=== PATIENT | male | born 1985 | race African-American/Black ===

== ENCOUNTER 2016-11-17 12:58 | Emergency (ER) | payer BC, SELFPAY ==
[2016-11-17] MEDS ORDERED: Lidocaine 1% (PF) 30 ML VIAL ONE (15:09)
== END 2016-11-17 15:43 | disposition home or self-care (01) ==
LOC: ERS 12:58
DX: L72.3 Sebaceous cyst (principal)
CPT/HCPCS: 10060; J2001

== ENCOUNTER 2016-11-21 16:39 | Emergency (ER) | payer SELFPAY ==
[2016-11-21] MEDS ORDERED: Lidocaine 1% PF 5 ML VIAL ONE (17:32)
[2016-11-21] MEDS ORDERED: Bacitracin Zinc 1 Packet ONE (17:51)
== END 2016-11-21 18:02 | disposition home or self-care (01) ==
LOC: ERS 16:39
DX: L72.3 Sebaceous cyst (principal)
CPT/HCPCS: 99283; J2001